=== PATIENT | female | born 1930 | race African-American/Black ===

== ENCOUNTER 2017-06-24 15:26 | Emergency (ER) | payer OTHER, MEDICAID ==
[2017-06-24 15:33] VITALS: BP 121/89; BMI 29.0
--- NOTE | 2017-06-24 17:14 | DR.GENAD ---
HPI - PCP Primary Care Physician: juan - HPI Comment HPI Comment: NO CURRENT DRAINAGE. SWELLING WORSE TODAY. - Complaint/Symptoms Chief Complaint Doctors Comments: REDNESS NOSE WITH RECENT PUS DRAINAGE TIMES 4 DAYS. TODAY REDNESS NOTED UNDER LEFT EYE. NO FEVER. Chief Complaint:: patient has had swelling on her nose and left eye for 4 days. - Nurses notes reviewed Nurses Notes Review: Yes - Source History Provided: Patient - Mode of Arrival Mode of Arrival: Ambulatory - Timing Onset of Chief Complaint: 06/20/17 Came on: Suddenly - Duration Duration: Constant Duration: Days - Severity Severity: Moderate PMH - PMH Past Medical History: Yes Past Surgical History: Yes - Family History History of Family Medical Conditions: Yes Family Medical History: Coronary Artery Disease, Hypertension - Social History Does patient currently use any type of tobacco product: No Have you used tobacco products in the last 12 months: No Type of Tobacco Use: None Does any household member use tobacco: No Alcohol Use: None Do you use any recreational Drugs:: No Lives With: Family Lives Where: Home - infectious screening In the last 2 months have you had wt loss of >10#?: NO Have you had fever, night sweats or hemotysis?: No Have you traveled outside the country in the last 6 months?: No Isolation: Standard ROS - Review of Systems Constitutional: No Symptoms Reported Eyes: No Symptoms Reported, Other (RENESS UNDER LRFT EYE.) ENTM: Nose Pain (REDNESS ON NOSE WITH SLIGHT DRAINAGE.) Respiratoy: No Symptoms Reported Cardiovascular: No Symptoms Reported Gastrointestinal/Abdominal: No Symptoms Reported Genitourinary: No Symptoms Reported Neurological: No Symptoms Reported Musculoskeletal: No Symptoms Reported Integumentary: Change in Color, Lesions (NOSE), Rash, Wound Hematologic/Lymphatic: No Symptoms Reported Endocrine: No Symptoms Reported PE - Vital Signs Vitals: Temperature 98.6 F Pulse Rate 81 Respiratory Rate 16 Blood Pressure 121/89 O2 Sat by Pulse Oximetry 99 - General Limitations: No Limitations General Appearance: Alert - Head Head Exam: Normal Inspection - Eyes Eye exam: Normal Appearance, Other (REDNESS UNDER LT EYE.) - ENT ENT Exam: Normal External Ear Exam External Ear Exam: Normal External Inspection TM/Canal Exam: Bilateral Normal Nose Exam: Other (ABSCESS/CELLULITIS NOSE GOING UNDER LT EYE.) Mouth Exam: Normal Inspection Throat Exam: Normal Inspection - Neck Neck Exam: Normal Inspection - Chest Chest Inspection: Symmetric Chest Wall Rise - Respiratory Respiratory Exam: Normal Lung Sounds Bilat Respiratory Exam: Bilateral Clear to Auscultation - Cardiovascular Cardiovascular Exam: Regular Rate, Normal Rhythm, Normal Heart Sounds - Abdominal Exam Abdominal Exam: Normal Inspection - Extremities Extremities Exam: Normal Inspection - Back Back Exam: Normal Inspection - Neurologic Neurological Exam: Alert - Psychiatric Psychiatric Exam: Normal Affect, Normal Mood - Skin Skin Exam: Rash (NOSE, RECENT PUS DRAINAGE, REDNESS UNDER LT EYE.) [facility] - Additional Information Additional Information Obtained From: Family - Differential Diagnosis Differential Diagnosis: CELLULITIS, IMPETIGO, NASAL RASH Course - Treatment Treatment: SEE ORDERS. - Education/Counseling Education/Counseling: Patient, Family, Education Educated On: Diagnosis, Needs for Follow Up ROR - Labs Reviewed Laboratory Results Reviewed?: Yes Result Diagrams: 06/24/17 17:35 06/24/17 17:35 Laboratory: WBC 4.7 X10^3/uL (3.6-10.0) 06/24/17 17:35 RBC 4.08 X10^6/uL (3.5-5.4) 06/24/17 17:35 Hgb 12.7 g/dL (12.0-16.0) 06/24/17 17:35 Hct 37.0 % (36.0-47.0) 06/24/17 17:35 MCV 90.8 fL (80.0-100.0) 06/24/17 17:35 MCH 31.0 pg (27.0-34.0) 06/24/17 17:35 MCHC 34.1 g/dL (33.0-35.0) 06/24/17 17:35 RDW 13.9 % (11.6-16.5) 06/24/17 17:35 Plt Count 316 X10^3/uL (150.0-450.0) 06/24/17 17:35 MPV 7.5 fL (7.4-11.0) 06/24/17 17:35 Neut % 46.0 % (42.0-75.0) 06/24/17 17:35 Lymph % 41.2 % (21.0-51.0) 06/24/17 17:35 [place] % 9.9 % (0.0-13.0) 06/24/17 17:35 Eos % 1.8 % (0.9-2.9) 06/24/17 17:35 Baso % 1.1 % (0.2-1.0) H 06/24/17 17:35 Neut # 2.2 x10^3/uL (2.2-4.8) 06/24/17 17:35 Lymph # 1.9 X10^3/uL (1.3-2.9) 06/24/17 17:35 [place] # 0.5 x10^3/uL (0.3-0.8) 06/24/17 17:35 Eos # 0.1 x10^3/uL (0.0-0.2) 06/24/17 17:35 Baso # 0.1 X10^3/uL (0.0-0.1) 06/24/17 17:35 Absolute Nucleated RBC 0.2 /100WBC 06/24/17 17:35 Sodium 141 mmol/L (136-145) 06/24/17 17:35 Corrected Sodium TNP 06/24/17 17:35 Potassium 3.6 mmol/L (3.5-5.1) 06/24/17 17:35 Chloride 104 mmol/L (98-107) 06/24/17 17:35 Carbon Dioxide 26.3 mmol/L (21-32) 06/24/17 17:35 BUN 16 mg/dL (7-18) 06/24/17 17:35 Creatinine 1.08 mg/dL (0.55-1.02) H 06/24/17 17:35 Est GFR (MDRD) Af Amer > 60 (>60) 06/24/17 17:35 Est GFR (MDRD) Non-Af 51 (>60) L 06/24/17 17:35 Glucose 95 mg/dL (65-99) 06/24/17 17:35 Calcium 9.3 mg/dL (8.5-10.1) 06/24/17 17:35 Corrected Calcium TNP 06/24/17 17:35 Total Bilirubin 0.50 mg/dL (0.2-1.0) 06/24/17 17:35 AST 29 Units/L (15-37) 06/24/17 17:35 ALT 30 Units/L (12-78) 06/24/17 17:35 Alkaline Phosphatase 113 Units/L (46-116) 06/24/17 17:35 C-Reactive Protein 47.60 mg/L (0-3.0) H 06/24/17 17:35 Total Protein 8.8 g/dL (6.4-8.2) H 06/24/17 17:35 Albumin 3.4 g/dL (3.4-5.0) 06/24/17 17:35 Globulin 5.4 g/dL (2.5-4.5) H 06/24/17 17:35 Albumin/Globulin Ratio 0.6 Ratio (1.1-2.1) L 06/24/17 17:35 - Diagnosis Discharge Problem: Cellulitis Qualifiers: Site of cellulitis: face Qualified Code(s): L03.211 - Cellulitis of face - Discharge Plan Condition: Stable Prescriptions: Ibuprofen [MOTRIN TAB 600 MG *] 600 mg PO BID PRN #14 tab PRN Reason: Pain/Inflammation Sulfamethoxazole-Trimethoprim [BACTRIM DS TAB 800/160 MG *] 1 tab PO BID #20 tab - Follow ups/Referrals Follow ups/Referrals: GISSELL GUZMÁN [Primary Care Provider] - 3 days - Instructions Instructions: Cellulitis, Adult, [id number] Additional Instructions: RETURN TO ED IF WORSE.
[2017-06-24 17:45] LABS: BASOPHILS # (AUTO) 0.1 X10^3/uL (0.0-0.1); BASOPHILS % (AUTO) 1.1 % (0.2-1.0); EOSINOPHILS # (AUTO) 0.1 x10^3/uL (0.0-0.2); EOSINOPHILS % (AUTO) 1.8 % (0.9-2.9); HEMOGLOBIN 12.7 g/dL (12.0-16.0); LYMPHOCYTES # (AUTO) 1.9 X10^3/uL (1.3-2.9); LYMPHOCYTES % (AUTO) 41.2 % (21.0-51.0); MEAN CORPUSCULAR HGB CONC 34.1 g/dL (33.0-35.0); MEAN CORPUSCULAR VOLUME 90.8 fL (80.0-100.0); MEAN PLATELET VOLUME 7.5 fL (7.4-11.0); MONOCYTES # (AUTO) 0.5 x10^3/uL (0.3-0.8); MONOCYTES % (AUTO) 9.9 % (0.0-13.0); NEUTROPHILS # (AUTO) 2.2 x10^3/uL (2.2-4.8); PLATELET COUNT 316 X10^3/uL (150.0-450.0); RED BLOOD COUNT 4.08 X10^6/uL (3.5-5.4); RED CELL DISTRIBUTION WIDTH 13.9 % (11.6-16.5); WHITE BLOOD COUNT 4.7 X10^3/uL (3.6-10.0)
[2017-06-24 17:59] LABS: ALANINE AMINOTRANSFERASE 30 Units/L (12-78); ALBUMIN 3.4 g/dL (3.4-5.0); ALKALINE PHOSPHATASE 113 Units/L (46-116); ASPARTATE AMINO TRANSFERASE 29 Units/L (15-37); BLOOD UREA NITROGEN 16 mg/dL (7-18); CALCIUM 9.3 mg/dL (8.5-10.1); CARBON DIOXIDE 26.3 mmol/L (21-32); CHLORIDE 104 mmol/L (98-107); CREATININE 1.08 mg/dL (0.55-1.02); SODIUM 141 mmol/L (136-145); TOTAL PROTEIN 8.8 g/dL (6.4-8.2); eGFR BLACK RACES > 60 (>60); eGFR NON BLACK RACES 51 (>60)
[2017-06-24] MEDS ORDERED: BACTRIM DS TAB PO ONE ×2 (18:31→18:57)
[2017-06-24] MEDS ORDERED: MOTRIN TAB 600 MG PO ONE ×2 (18:33→18:57)
== END 2017-06-24 18:58 | disposition home or self-care (01) ==
LOC: ER 15:50
DX: L03.211 Cellulitis of face (principal)
CPT/HCPCS: 36415; 80053; 85025; 86140; 87040; 99282; 99283